=== PATIENT | male | born 1965 | race Two or more races ===

== ENCOUNTER 2016-04-19 07:25 | Day surgery (SDC) | payer OTHER ==
[~2016-04-19] VITALS: Ht 157.5 cm; Wt 117.4 kg
[2016-04-19 08:23] VITALS: Ht 157.5 cm; Wt 117.4 kg
[2016-04-19] MEDS ORDERED: LIDOCAINE 2% (SDV) 5 ML INJ ONE (08:35)
[2016-04-19] MEDS ORDERED: PROPOFOL 40 ML ONE (08:35)
[2016-04-19 08:53] VITALS: BP 144/97; PULSE 81; RESP 12
[2016-04-19] MEDS ORDERED: PROPOFOL 20 ML ONE (09:21)
[2016-04-19 09:48] VITALS: BP 144/87; RESP 20
--- NOTE | 2016-04-19 23:09 | GILP ---
DATE OF PROCEDURE: NAME OF PROCEDURES: 1. Esophagogastroduodenoscopy and biopsy. 2. Colonoscopy. SURGEON: Rhianna Martines MD PREOPERATIVE DIAGNOSES: 1. Abdominal pain. 2. Screening colonoscopy. POSTOPERATIVE DIAGNOSES 1. Reflux esophagitis with erosions. 2. Gastritis. 3. Gastric mucosal biopsies were taken for Helicobacter pylori test. 4. Colonoscopy all the way to the cecum. 5. Poor prep making the exam somewhat suboptimal. 6. Diverticulosis of the colon. 7. Internal hemorrhoids. INDICATION FOR THE PROCEDURE: Ms. Denise Peña is a 50-year-old female patient who had upper abdo vladimir pain, not responding to therapy. She also needed screening colonoscopy. The procedures and possible complications were well explained to the patient. The patient understoo d and consented to the procedure. DESCRIPTION OF PROCEDURE: Under the influence of anesthesia, the gastroscope was carefully introduc ed into the esophagus and under direct vision, it was advanced to the stomach and through the pyloru s into the duodenal bulb and descending duodenum. FINDINGS: ESOPHAGUS: The patient had reflux esophagitis with erosions at the lower end. STOMACH: She had gastritis. Gastric mucosal biopsies were taken for H. pylori test. DUODENUM: Normal. The colonoscope was carefully introduced in the rectum and under direct vision, it was advanced all the way to the cecum. FINDINGS: The patient had poor prep making the exam somewhat suboptimal. The patient was noted to have diverticulosis of the colon and internal hemorrhoids. No gross neoplasm was identified. She tolerated the procedures very well and there was no complication from the procedures. At the en d of the procedures, she was awake with stable vital signs and she was discharged home to the care o f her family. IMPRESSION: Please see postoperative diagnoses. PLAN: 1. Omeprazole 40 mg p.o. q.a.m. 2. Await H. pylori test report. 3. Next screening colonoscopy in 3 years because of the poor prep and suboptimal nature of examinat ion. Dictated By: RHIANNA SWAN/SULEMAN Conf#: [id number] DID#: [id number]
== END 2016-04-19 10:53 | disposition home or self-care (01) ==
LOC: GIL 07:25
PROVIDERS: ATTEND Internal Medicine Gastroenterology
DX: K21.0 Gastro-esophageal reflux disease with esophagitis (principal); K29.70 Gastritis, unspecified, without bleeding; K57.90 Diverticulosis of intestine, part unspecified, without perforation or abscess without bleeding; K64.8 Other hemorrhoids; E66.01 Morbid (severe) obesity due to excess calories; Z68.42 Body mass index [BMI] 45.0-49.9, adult
CPT/HCPCS: 43239; 45378; 84703; 87081; Z7610

== ENCOUNTER 2016-06-06 06:59 | Day surgery (SDC) | payer OTHER ==
[2016-06-03 16:03] VITALS: BMI 41.6
[2016-06-06] VITALS (15 sets, daily range): BP systolic 120–159; BP diastolic 52–95; PULSE 75–95; RESP 16–26; Ht 162.6 cm; Wt 119.6 kg
[~2016-06-06] VITALS: Ht 162.6 cm; Wt 119.6 kg
[2016-06-06] MEDS ORDERED: CEFAZOLIN 2 GM/50 ML (PMX) 50 ML IVPB ONE (08:30)
[2016-06-06] MEDS ORDERED: SOD CHLORIDE 0.9% 1,000 ML IV SCH (08:30)
[2016-06-06 09:34] LABS: ADD SCAN DIFF NO
[2016-06-06 09:37] LABS: BASOPHILS % 0.4 % (0.0-2.0); EOSINOPHILS # 0.2 10^3/ul (0.0-0.5); EOSINOPHILS % 2.6 % (0.0-7.0); HEMATOCRIT 35.2 % (37.0-47.0); HEMOGLOBIN 11.2 g/dl (12.0-16.0); LYMPHOCYTES # 1.9 10^3/ul (0.8-2.9); LYMPHOCYTES % 26.2 % (15.0-51.0); MEAN CORPUSCULAR HEMOGLOBIN 23.5 pg (29.0-33.0); MEAN CORPUSCULAR HGB CONC 31.8 g/dl (32.0-37.0); MEAN CORPUSCULAR VOLUME 73.9 fl (82.0-101.0); MEAN PLATELET VOLUME 10.8 fl (7.4-10.4); MONOCYTE # 0.5 10^3/ul (0.3-0.9); MONOCYTES % 6.5 % (0.0-11.0); NEUTROPHIL # 4.7 10^3/ul (1.6-7.5); NEUTROPHILS % 64.2 % (39.0-77.0); PLATELET COUNT 251 10^3/UL (140-415); RED BLOOD COUNT 4.76 10^6/ul (4.20-5.40); WHITE BLOOD COUNT 7.3 10^3/ul (4.8-10.8)
[2016-06-06] MEDS ORDERED: CHOL400C PO (09:45)
[2016-06-06] MEDS ORDERED: RANI150C11 PO (09:45)
[2016-06-06 09:53] LABS: INR 0.99; PROTIME 13.1 Sec (12.2-14.2)
[2016-06-06 10:07] LABS: POTASSIUM 3.9 mmol/L (3.5-5.1)
[2016-06-06 10:08] LABS: CALCIUM 8.6 mg/dl (8.4-10.2); CREATININE 0.57 mg/dl (0.44-1.00)
[2016-06-06] MEDS ORDERED: MIDAZOLAM 1 MG/ML 2 ML INJ ONE (11:03)
[2016-06-06] MEDS ORDERED: PROPOFOL 20 ML ONE (11:03)
[2016-06-06] MEDS ORDERED: METOCLOPRAMIDE 10 MG INJ ONE (11:04)
[2016-06-06] MEDS ORDERED: ONDANSETRON 4 MG INJ ONE (11:04)
[2016-06-06] MEDS ORDERED: FENTAnyl 50 MCG/ML VIAL ONE ×2 (11:09→11:54)
[2016-06-06] MEDS ORDERED: CEFAZOLIN 1 GM INJ ONE (11:09)
[2016-06-06] MEDS ORDERED: ISOSULFAN BLUE 1% 5 ML INJ SC ONE (11:21)
--- NOTE | 2016-06-06 12:15 | RADRPT ---
PROCEDURE: XR Chest. CLINICAL INDICATION: Right breast cancer. Preoperative. TECHNIQUE: Single frontal view. COMPARISON: None. FINDINGS: The lungs are clear. The heart size is normal. There is no pleural effusion. There is no pneumothorax. IMPRESSION: 1. Normal chest radiograph. RPTAT: QQ .Greg Nguyen MD, MD Date Time Electronically viewed and signed by .Greg Nguyen MD, MD on 06/06/2016 12:15 .R/
[2016-06-06] MEDS ORDERED: ACETAMINOPHEN 1000MG/100ML IV 100 ML IVPB PRN (12:30)
--- NOTE | 2016-06-06 12:55 | OPR ---
DATE OF OPERATION: 06/06/2016 PREOPERATIVE DIAGNOSIS: Invasive cancer, right breast. POSTOPERATIVE DIAGNOSIS: Invasive cancer, right breast. OPERATION PERFORMED: Right partial mastectomy and axillary dissection utilizing sentinel lymph node technique. ANESTHESIA: General anesthesia. ANESTHESIOLOGIST: Prabha Benitez MD SURGEON: Brayan Delgado MD PRODUCT MARKETER: Jonah Clement MD INDICATIONS FOR PROCEDURE: The patient is a 51-year-old female who underwent surveillance mammograp hy and was found to have a suspicious lesion in her right breast. A subsequent biopsy revealed an i nvasive lobular cancer. The patient was counseled as to risks versus benefits of surgery. She cons ented and was scheduled for surgery. DESCRIPTION OF PROCEDURE: On the morning of surgery, the patient presented to [facility] where she underwent localization of the lesion performed by attending radiologis t, Dr. Kaur Rivera. Subsequently, she was brought to the operating theater, placed under genera l anesthesia. The right breast and axillary region where prepped and draped in the usual sterile fa shion. Approximately 4 mL of 1% Lymphazurin blue dye were then injected peritumorally and the breas t was gently massaged for approximately 12 minutes. A 3 to 4 cm incision was then made in the right axillary hairline. Subcutaneous tissue was dissected with cautery down through the clavipectoral f ascia. A dye-stained lymphatic was identified and traced to an obvious sentinel node. There were a dditional enlarged nodes in this area. Dr. Delgado made the decision to remove the sentinel nodes and these additional nodes with blunt dissection along the chest wall. The long thoracic nerve was raghav ntified and kept out of harm's way. More superiorly, the axillary vein and thoracodorsal neurovascu lar bundle were identified kept out of harm's way. Node bearing tissue between the thoracodorsal ne rve, long thoracic nerve was meticulously dissected using the LigaSure device. The specimen was rem marge. Attending pathologist, Dr. Shu De Leon came in and examined the sentinel node and the addit ional nodes. Cytologically there was no definite evidence of cancer. Therefore, they were sent for permanent pathologic analysis. The wound was irrigated. Minimal bleeding was controlled with caut hieu. A #10 [place] Aditya-Thayer drain was then brought through the right mid axillary line, cut to size, laid within the axilla. It was secured in place in the standard fashion with 2-0 nylon suture . The skin was then reapproximated with 4-0 Vicryl suture in subcuticular fashion. Attention was then directed to performing partial mastectomy. A curvilinear incision was made in th e region of the previously placed localization wire which was in the upper outer quadrant of the adrien ast. Subcutaneous tissue was dissected with cautery. The skin edges were elevated with skin hooks. Wide circumferential dissection of the tissue associated with the wire then took place, taking gre at care to ensure adequate margin. Specimen was elevated, transected, oriented, and sent for radiog raphic confirmation of capture. Capture was confirmed. Specimen was then sent for permanent pathol ogic analysis. The wound was irrigated. Minimal bleeding was controlled with cautery. The skin wa s then reapproximated with a deep dermal layer of 4-0 Vicryl sutures, followed by final skin approxi mation with 5-0 PDS sutures in subcuticular fashion. Benzoin and Steri-Strips were then applied to both incisions. Patient tolerated procedure well. Estimated blood loss was 30 mL. There were no c omplications. The patient was transported in stable condition to the recovery room. Dictated By: BRAYAN DELGADO MD TL/SULEMAN Conf#: [id number] DID#: [id number] CC: JONAH CLEMENT MD;*EndCC*
[2016-06-06] MEDS ORDERED: MEPERIDINE 25 MG INJ IV PRN (13:00)
[2016-06-06] MEDS ORDERED: HYDROmorphONE (0.2 MG/ML) 10ML SYG IV PRN ×2 (13:00)
[2016-06-06] MEDS ORDERED: DIPHENHYDRAMINE 50 MG INJ IV PRN (13:00)
[2016-06-06] MEDS ORDERED: OXYCODONE/ACETAMINOPHEN (5/325) TAB PO PRN ×2 (13:00)
[2016-06-06] MEDS ORDERED: METOCLOPRAMIDE 10 MG INJ IV PRN (13:00)
[2016-06-06] MEDS ORDERED: ONDANSETRON 4 MG INJ IV PRN ×2 (13:00)
[2016-06-06] MEDS: HYDROmorphONE (0.2 MG/ML) 10ML SYG IV PRN ×2 (13:07→13:13)
--- NOTE | 2016-06-06 14:12 | HP ---
DATE OF ADMISSION: 06/06/2016 HISTORY OF PRESENT ILLNESS: The patient is a 51-year-old female with past medical history positive for GERD. The patient underwent surveillance mammography and was found to have suspicious lesion in her right breast. Subsequent biopsy revealed invasive lobular cancer. The patient was evaluated b owen Delgado in general surgery consultation and patient was brought to the hospital and underwent ri ght partial mastectomy and axillary dissection utilizing sentinel lymph node technique. Postoperati vely, patient experienced some significant pain and the patient will be admitted for further evaluat ion and management to medical/surgical floor. PAST MEDICAL HISTORY: Reflux esophagitis and gastritis per esophagogastroduodenoscopy done in [address] Martines. PAST SURGICAL HISTORY: The patient is status post and status post cholecystectomy. FAMILY HISTORY: Negative for any history of breast or ovarian cancer. SOCIAL HISTORY: The patient lives at home with her family. The patient denies any tobacco use, den ies any alcohol use, denies any illicit drug use. ALLERGIES: NO KNOWN ALLERGIES. HOME MEDICATIONS: 1. Ranitidine 150 mg p.o. at bedtime 2. Vitamin D 400 units p.o. daily. REVIEW OF SYSTEMS: A 12-point review of system is negative unless was mentioned in the HPI. PHYSICAL ASSESSMENT: GENERAL: Well-developed, obese female currently is awake, alert. VITAL SIGNS: Temperature is 98.0, pulse is 84, blood pressure 147/95, respiratory rate 18, oxygen s aturation 99% on room air. HEENT: Head is atraumatic, normocephalic. Pupils equal, round, reactive to light and accommodation . Oral mucosa is pink and moist. NECK: Supple, no cervical lymphadenopathy, no thyromegaly. LUNGS: Clear bilaterally. There is no rhonchi, wheezes, rales noted. CHEST: Status post surgery with dry, clean and intact dressing. CARDIOVASCULAR: Normal S1, S2. No murmurs, gallops, clicks, rubs noted. ABDOMEN: Protuberant, soft, nondistended, nontender. There is no guarding, no rebound tenderness. EXTREMITIES: There is no edema, clubbing, cyanosis. Pulses equal bilaterally 2+. SKIN: There is no rash, petechiae noted. NEUROLOGIC: Patient is awake, alert and oriented x4. No focal deficits noted. Motor strength 5/5 in all extremities. LABORATORY DATA: On admission, CBC: White blood cell 7.3, hemoglobin 11.2, hematocrit 35.2, platel ets 251. Chemistry: Sodium is 142, potassium 3.9, chloride 106, carbon dioxide 24, anion gap 16, B UN is 10, creatinine 0.57, glucose 108, calcium 8.6. PT 13.1, INR 0.99, PTT is 29.2. ASSESSMENT AND PLAN: 1. Invasive cancer of the right breast, status post right partial mastectomy and axillary dissectio n. We are going to continue Zofran p.r.n. for nausea and morphine, Tylenol, IV p.r.n. for pain. 2. GERD. Continue patient on ranitidine. 3. Obesity. Weight loss advised. We will continue IV fluids. Monitor electrolytes. Continue sequential compression device for deep venous thrombosis prophylaxis. Further recommendations based on clinical course. Plan of care disc ussed with Dr. Casillas. Dictated By: BENITA PATRICIO MOLD BREAKER for PAYAL CASILLAS MD SR/NTS Conf#: [id number] DID#: [id number]
[2016-06-06] MEDS: D5W-0.45 NACL + KCL 20 MEQ 1,000 ML IV SCH (15:59)
[2016-06-06] MEDS: morphine 2 MG INJ IV PRN (20:41)
[2016-06-06] MEDS ORDERED: RANITIDINE 150 MG TAB PO SCH (21:00)
[2016-06-07] MEDS: D5W-0.45 NACL + KCL 20 MEQ 1,000 ML IV SCH ×3 (00:04→08:36)
[2016-06-07 07:57] LABS: ADD SCAN DIFF NO
[2016-06-07 08:00] VITALS: BP 131/78; RESP 20
[2016-06-07] MEDS ORDERED: HYDROCODONE/APAP (5/325) TAB PO PRN (08:00)
[2016-06-07 08:04] LABS: BASOPHILS % 0.4 % (0.0-2.0); EOSINOPHILS # 0.1 10^3/ul (0.0-0.5); EOSINOPHILS % 1.1 % (0.0-7.0); HEMOGLOBIN 10.2 g/dl (12.0-16.0); LYMPHOCYTES # 2.4 10^3/ul (0.8-2.9); LYMPHOCYTES % 21.1 % (15.0-51.0); MEAN CORPUSCULAR HEMOGLOBIN 23.4 pg (29.0-33.0); MEAN CORPUSCULAR HGB CONC 30.9 g/dl (32.0-37.0); MEAN CORPUSCULAR VOLUME 75.9 fl (82.0-101.0); MEAN PLATELET VOLUME 11.5 fl (7.4-10.4); MONOCYTE # 0.7 10^3/ul (0.3-0.9); PLATELET COUNT 240 10^3/UL (140-415); RED BLOOD COUNT 4.35 10^6/ul (4.20-5.40); RED CELL DISTRIBUTION WIDTH 18.6 % (11.5-14.5); WHITE BLOOD COUNT 11.3 10^3/ul (4.8-10.8)
[2016-06-07 08:18] LABS: POTASSIUM 3.8 mmol/L (3.5-5.1)
[2016-06-07 08:21] LABS: CREATININE 0.54 mg/dl (0.44-1.00)
[2016-06-07 08:22] LABS: CALCIUM 7.9 mg/dl (8.4-10.2)
[2016-06-07] MEDS: morphine 2 MG INJ IV PRN (08:37)
[2016-06-07 13:00] VITALS: BP 128/70; PULSE 70
[2016-06-07] MEDS ORDERED: HYDR-3498 PO (16:04)
[2016-06-07 17:00] VITALS: BP 130/67; PULSE 73; RESP 18
--- NOTE | 2016-06-07 19:04 | PN ---
DATE: 06/07/2016 Postop day #1. SUBJECTIVE: No complaint. OBJECTIVE: VITAL SIGNS: Temperature 98.4, 79, respirations, 131/78 blood pressure, saturation 96% on jaspreet m air. LABORATORY DATA: WBC 11,300 with 71% neutrophils. Hemoglobin 10.2, hematocrit 33. Chemistry withi n normal limits. Dressing is intact. Aditya-Thayer drain is draining serosanguineous fluid. In th e past 24 hours since the operation has drained 20 mL. ABDOMEN: Soft. EXTREMITIES: Legs negative, no calf tenderness. ASSESSMENT: A 51-year-old female with status post partial mastectomy and axillary dissection on the right side. Patient is doing fine and is stable. Aditya-Thayer draining serosanguineous fluid 20 mL per 24 hour. PLAN: The patient will go home with Aditya-Thayer drain and the nurses can teach the patient the ca re of the Aditya-Thayer and the fact to record the drainage every night and to call Dr. Delgado' offic e tomorrow, make an appointment for followup and at the time of followup she takes the recording wit h her. Pain medication was given by primary care physician. Dictated By: HIMANSHU LOWRY/SULEMAN Conf#: [id number] DID#: [id number]
[2016-06-07 20:00] VITALS: BP 123/65; PULSE 63; RESP 20
--- NOTE | 2016-06-08 19:10 | RADRPT ---
Vent Rate: 65 bpm RR Interval: 0 msec DE Interval: 132 msec QRS Duration: 82 msec QT Interval: 462 msec QTC Interval: 480 msec P-R-T [place]: 35 - 28 - 34 degrees Normal sinus rhythm Prolonged QT Abnormal ECG Electronically Signed By: Warren Barker [id number]
== END 2016-06-07 20:15 | disposition home or self-care (01) ==
LOC: EDSEX 06:59 → SDS 06:59 → MS2 14:14 → SDS 06-07 20:15
PROVIDERS: ATTEND Surgery Surgical Oncology
DX: C50.911 Malignant neoplasm of unspecified site of right female breast (principal)
CPT/HCPCS: 19301; 38500; 38792; 71010; 80048; 85025; 85610; 85730; 88309; 88331; 93005; J0690; J1170; J2175; J2250; J2270; J2765; J3010; J3480; Z7512; Z7610; J2405; Q9968

== ENCOUNTER 2016-07-01 10:21 | Day surgery (SDC) | payer OTHER ==
[2016-06-30 14:19] VITALS: BMI 45.4
[~2016-07-01] VITALS: Ht 162.6 cm; Wt 118.7 kg
[2016-07-01] VITALS (9 sets, daily range): BP systolic 136–191; BP diastolic 71–104; PULSE 74–94; RESP 14–18; Ht 162.6 cm; Wt 118.7 kg
[~2016-07-01 10:21] MED LIST: CEFAZOLIN 2 GM/50 ML (PMX) 50 ML IVPB SCH; CHOL400C PO; HYDR-3498 PO; RANI150C11 PO; SOD CHLORIDE 0.9% 1,000 ML IV SCH
[2016-07-01 12:59] LABS: ADD SCAN DIFF NO
[2016-07-01 13:04] LABS: BASOPHILS % 0.3 % (0.0-2.0); EOSINOPHILS # 0.2 10^3/ul (0.0-0.5); EOSINOPHILS % 2.1 % (0.0-7.0); HEMATOCRIT 37.7 % (37.0-47.0); HEMOGLOBIN 11.7 g/dl (12.0-16.0); LYMPHOCYTES # 2.4 10^3/ul (0.8-2.9); MEAN CORPUSCULAR HEMOGLOBIN 23.5 pg (29.0-33.0); MEAN CORPUSCULAR VOLUME 75.7 fl (82.0-101.0); MEAN PLATELET VOLUME 11.1 fl (7.4-10.4); MONOCYTE # 0.5 10^3/ul (0.3-0.9); MONOCYTES % 5.2 % (0.0-11.0); NEUTROPHIL # 6.9 10^3/ul (1.6-7.5); PLATELET COUNT 271 10^3/UL (140-415); RED BLOOD COUNT 4.98 10^6/ul (4.20-5.40); RED CELL DISTRIBUTION WIDTH 18.5 % (11.5-14.5); WHITE BLOOD COUNT 10.1 10^3/ul (4.8-10.8)
[2016-07-01 13:15] LABS: INR 1.06; POTASSIUM 3.8 mmol/L (3.5-5.1); PROTIME 13.8 Sec (12.2-14.2); PT RATIO 1.1
[2016-07-01 13:16] LABS: CREATININE 0.56 mg/dl (0.44-1.00)
[2016-07-01] MEDS ORDERED: LIDOCAINE 2% (SDV) 5 ML INJ ONE (13:20)
[2016-07-01] MEDS ORDERED: MIDAZOLAM 1 MG/ML 2 ML INJ ONE (13:20)
[2016-07-01] MEDS ORDERED: PROPOFOL 20 ML ONE (13:20)
[2016-07-01] MEDS ORDERED: FENTAnyl 50 MCG/ML VIAL ONE (13:21)
[2016-07-01] MEDS ORDERED: HYDROmorphONE (0.2 MG/ML) 10ML SYG IV PRN (13:30)
[2016-07-01] MEDS ORDERED: HYDROCODONE/APAP (7.5/325) TAB PO PRN (13:30)
[2016-07-01] MEDS ORDERED: FENTAnyl 50 MCG/ML VIAL IV PRN (13:30)
[2016-07-01] MEDS ORDERED: DIPHENHYDRAMINE 50 MG INJ IV PRN (13:30)
[2016-07-01] MEDS ORDERED: OXYCODONE/ACETAMINOPHEN (5/325) TAB PO PRN ×2 (13:30)
[2016-07-01] MEDS ORDERED: MEPERIDINE 25 MG INJ IV PRN (13:30)
[2016-07-01] MEDS ORDERED: ONDANSETRON 4 MG INJ IV PRN (13:30)
[2016-07-01] MEDS ORDERED: PROCHLORPERAZINE 10 MG INJ IV PRN (13:30)
[2016-07-01] MEDS ORDERED: CEFAZOLIN 1 GM INJ ONE (14:26)
[2016-07-01] MEDS ORDERED: ONDANSETRON 4 MG INJ ONE (14:28)
[2016-07-01] MEDS ORDERED: METOCLOPRAMIDE 10 MG INJ ONE (14:28)
[2016-07-01] MEDS ORDERED: DEXAMETHASONE 4 MG/ML 1 ML INJ ONE (14:28)
[2016-07-01] MEDS ORDERED: HYDROmorphONE 2 MG/ML SYG ONE (14:45)
--- NOTE | 2016-07-01 15:24 | OPR ---
DATE OF OPERATION: 07/01/2016 PREOPERATIVE DIAGNOSIS: Need for reexcision right partial mastectomy. POSTOPERATIVE DIAGNOSIS: Need for reexcision right partial mastectomy. OPERATION PERFORMED: Reexcision right partial mastectomy. ANESTHESIA: General. ANESTHESIOLOGIST: Dr. Harvey SURGEON: Brayan Delgado MD BUSINESS SOLUTIONS ARCHITECT: Dr. Montgomery INDICATIONS FOR PROCEDURE: The patient is a 51-year-old female who I previously treated for invasiv e lobular cancer of her right breast. Final pathology showed inadequate margins laterally, inferior ly, and medially. The patient was counseled as to the need for reexcision partial mastectomy. She consented and was scheduled for surgery. DESCRIPTION OF PROCEDURE: The patient was brought to the operating theater, placed under general an esthesia. The right breast was prepped and draped in usual sterile fashion. The previous surgical incisional scar in the upper outer quadrant was reincised with 15 blade scalpel. Subcutaneous tissu e was dissected with cautery, and the seroma cavity was entered. Several milliliters of straw-color ed seroma fluid was suction evacuated. Skin edges were elevated with skin hooks, and circumferentia l dissection of the medial, inferior, and lateral margin then took place with cautery. Specimen was elevated, transected, oriented, and sent for permanent pathologic analysis. Minimal bleeding was c ontrolled with cautery. The wound was irrigated. There was no additional bleeding. The skin incis ion was then reapproximated with a 4-0 Vicryl suture in subcuticular fashion. Benzoin and Steri-Str ips were then applied. The patient tolerated the procedure well. The estimated blood loss was 30 m L. There were no complications, and the patient was transported in stable condition to the recovery room. Dictated By: BRAYAN QUEZADA/SULEMAN Conf#: [id number] DID#: [id number]
[2016-07-01] MEDS ORDERED: LABETALOL HCL 20MG INJ IV PRN (15:30)
[2016-07-01] MEDS ORDERED: hydrALAzine 20 MG INJ IV PRN (15:30)
== END 2016-07-01 16:45 | disposition home or self-care (01) ==
LOC: SDS 10:21
PROVIDERS: ATTEND Surgery Surgical Oncology
DX: C50.911 Malignant neoplasm of unspecified site of right female breast (principal); E66.01 Morbid (severe) obesity due to excess calories; Z68.41 Body mass index [BMI] 40.0-44.9, adult
CPT/HCPCS: 19301; 80048; 85025; 85610; 85730; 88307; J0690; J1100; J1170; J2250; J2405; J2765; J3010; Z7512; Z7610